=== PATIENT | female | born 1980 | race Caucasian/White ===

== ENCOUNTER → 2016-10-26 | Outpatient (CLI) | payer BC ==
[~2016-10-26] MED LIST: CLC100 PO; FRRS300; IBUP-1428 PO; PRENTAB26 PO
--- NOTE | 2016-10-26 13:47 | DIAGNOSTIC IMAGING REPORT ---
THYROID ULTRASOUND HISTORY: Left neck lump. COMPARISON: None. FINDINGS: Right lobe: 5.4 x 2.0 x 1.9 cm. Multiple complex nodules. Dominant nodule within the lower pole measures 1.4 x 1.0 x 0.7 m. This contains punctate echogenic foci consistent with colloid. There is a similar-appearing 1.1 x 0.6 x 0.8 cm solid and cystic nodule within the upper pole. Left lobe: 8.3 x 2.9 x 3.1 cm. Multiple complex nodules. Dominant solid and cystic nodule within the upper pole measures 3.2 x 2.4 x 2.9 cm. This is predominantly solid. There is also a large dominant cystic nodule at the interpolar region measuring 2.6 x 2.4 x 2.1 cm. Isthmus: 3 mm in thickness. No nodules. IMPRESSION: Multiple bilateral thyroid nodules as described above, left greater than right. Dominant predominantly solid nodule within the upper pole of the left thyroid lobe measures 3.2 cm. Ultrasound-guided fine-needle aspiration can be performed for further evaluation on an outpatient basis. Electronically signed by: Conrado Mohan M.D. 10/26/2016 1:45 PM Dictated Date/Time: 10/26/2016 1:41 PM
== END | disposition home or self-care (01) ==
LOC: C.ULTR 12:47
PROVIDERS: ATTEND Family Medicine Hospice and Palliative Medicine
DX: R22.1 Localized swelling, mass and lump, neck (principal); R53.83 Other fatigue; R00.2 Palpitations; Z83.49 Family history of other endocrine, nutritional and metabolic diseases